=== PATIENT | male | born 1970 | race Caucasian/White ===

== ENCOUNTER 2017-11-10 18:31 | Emergency (ER) | payer SELFPAY ==
[~2017-11-10] VITALS: Ht 182.9 cm; Wt 132.0 kg
[~2017-11-10 18:31] MED LIST: Aspirin PO; Effient PO; Habitrol,Nicoderm CQ TD; Lipitor PO; Lopressor PO; NOHOMEMEDS; Zestril,Prinivil PO
[2017-11-10 19:00] LABS: HEMATOCRIT 42.5 % (38.0-50.0); HEMOGLOBIN 14.8 G/DL (12.5-16.6); MCH 32.7 PG (29.0-34.0); MCHC 34.8 G/DL (30.0-36.0); MCV 93.8 FL (86-99); PLATELET COUNT 253 K/uL (156-360); RBC DIS.WIDTH-CV 12.2 % (11.8-14.6); RBC DIS.WIDTH-SD 42.5 % (39-53); RED BLOOD COUNT 4.53 M/uL (4.00-5.50); WHITE BLOOD COUNT 9.9 K/uL (4.1-10.2)
[2017-11-10 19:10] LABS: ALBUMIN 3.7 g/dL (3.2-4.8); CHLORIDE 108 mEq/L (99-109); POTASSIUM 3.9 mEq/L (3.7-5.4); SODIUM 140 mEq/L (136-147)
[2017-11-10 19:12] LABS: PTT 29.9 SEC (25-37)
[2017-11-10 19:12] LABS: GLUCOSE 110 mg/dL (70-99); TOTAL PROTEIN 7.2 g/dL (6.4-8.3)
[2017-11-10 19:14] LABS: TOTAL BILIRUBIN 0.2 mg/dL (0.0-1.0)
[2017-11-10 19:16] LABS: ALKALINE PHOSPHATASE 98 IU/L (3-129); GFR ESTIMATE (CALCULATED) > 59 mL/min/ (58.99-99999)
[2017-11-10 19:17] LABS: AST (GOT) 23 IU/L (2-34); UREA NITROGEN (BUN) 14 mg/dL (9-23)
[2017-11-10 19:19] LABS: ALT (GPT) 29 IU/L (3-49)
[2017-11-10 19:25] LABS: TROP-I INTERPRETATION NEGATIVE; TROPONIN-I 0.02 ng/mL (0.0-0.30)
[2017-11-10 20:27] VITALS: BP 121/78
== END 2017-11-10 20:28 | disposition left against medical advice (07) ==
LOC: EME 18:31
PROVIDERS: Nurse Practitioner Family
DX: R55 Syncope and collapse (principal); R04.0 Epistaxis; I25.2 Old myocardial infarction; Z53.20 Procedure and treatment not carried out because of patient's decision for unspecified reasons; Z87.442 Personal history of urinary calculi; Z79.82 Long term (current) use of aspirin; F17.200 Nicotine dependence, unspecified, uncomplicated
CPT/HCPCS: 70450; 71046; 80053; 84484; 85027; 85610; 85730; 93005; 99281; 99285